=== PATIENT | female | born 1970 ===

== ENCOUNTER 2018-06-16 18:12 | Emergency (ER) | payer MEDICAID ==
[2018-06-16 18:31] VITALS: O2SAT 100
--- NOTE | 2018-06-16 19:55 | ED PDOC ---
HPI: Headache Time Seen by Provider: 06/16/18 19:08 Chief Complaint (Nursing): Headache Chief Complaint (Provider): Headache History Per: Patient History/Exam Limitations: no limitations Onset/Duration Of Symptoms: Days Current Symptoms Are (Timing): Still Present Additional Complaint(s): Cleo Zavala is a 48 year old female with a past medical history of hypothyr oidism who is presenting to the ED for multiple complaints. She complains of right elbow pain, worse when extending and flexing at elbow, onset 1 week ago. Patient denies any heavy lifting or significant trauma and states that she took Motrin once in the past week. She also reports a bi-temporal headache described as a throbbing, sharp, pressure like sensation, associated with dizziness and lightheadedness but not a room spinning sensation. Patient states that she is not prone to getting headaches and denies any neck stiffness or fevers. Headache is non-thunderclap or maximal in onset. PMD: Michael in [facility] Past Medical History Reviewed: Historical Data, Nursing Documentation, Vital Signs Vital Signs: Last Vital Signs Temp 98.7 F 06/16/18 18:28 Pulse 71 06/16/18 18:28 Resp 16 06/16/18 18:28 BP 117/86 06/16/18 18:28 Pulse Ox 100 06/16/18 18:28 - Medical History PMH: Hypothyroidism - Surgical History Surgical History: No Surg Hx - Family History Family History: States: Unknown Family Hx - Social History Current smoker - smoking cessation education provided: No Alcohol: None Drugs: Denies - Home Medications Home Medications: Ambulatory Orders Medication Instructions Recorded Cyclobenzaprine [Cyclobenzaprine 10 mg PO BID #15 tab 06/16/18 HCl] Naproxen [Naprosyn] 500 mg PO BID #30 tablet 06/16/18 - Allergies Allergies/Adverse Reactions: Allergies Allergy/AdvReac Type Severity Reaction Status Date / Time No Known Allergies Allergy Verified 06/16/18 19:22 Review of Systems ROS Statement: Except As Marked, All Systems Reviewed And Found Negative Constitutional: Negative for: Fever Musculoskeletal: Positive for: Arm Pain. Negative for: Neck Pain Neurological: Positive for: Headache, Dizziness Physical Exam - Reviewed Nursing Documentation Reviewed: Yes Vital Signs Reviewed: Yes - Physical Exam Appears: Positive for: Well (patient is walkign around the ED eating and drinking), Non-toxic, No Acute Distress Head Exam: Positive for: ATRAUMATIC, NORMAL INSPECTION, NORMOCEPHALIC Skin: Positive for: Normal Color, Warm, DRY Eye Exam: Positive for: EOMI, Normal appearance, PERRL ENT: Positive for: Normal ENT Inspection Neck: Positive for: Normal, Painless ROM Cardiovascular/Chest: Positive for: Regular Rate, Rhythm. Negative for: Murmur Respiratory: Positive for: Normal Breath Sounds. Negative for: Respiratory Dist ress Gastrointestinal/Abdominal: Positive for: Normal Exam, Soft. Negative for: Tenderness Back: Positive for: Normal Inspection Extremity: Positive for: Normal ROM. Negative for: Deformity, Swelling Neurologic/Psych: Positive for: Alert, city manager II-XII (intact), Oriented, Gait (normal). Negative for: Motor/Sensory Deficits - ECG O2 Sat by Pulse Oximetry: 100 (RA) Pulse Ox Interpretation: Normal Medical Decision Making Medical Decision Making: Time: 19:22 A/P: Well appearing 48 year old female with headache and right arm pain --Arm pain likely due to tendonitis and headache is likely tension v migraine not concerned for meningitis subarachnoid --Given age and first time headache like this one, will get head CT to rule out mass CT Head: --Normal. No acute findings. --Patient is feeling much better --Advised followup with her PMD in [place] --Patient is feeling much better upon evaluation, well appearing, ambulatory Scribe Attestation: Documented by Marilu Fiore, acting as a scribe for Tez Ernst MD. Provider Scribe Attestation: All medical record entries made by the Scribe were at my direction and personally dictated by me. I have reviewed the chart and agree that the record accurately reflects my personal performance of the history, physical exam, medical decision making, and the department course for this patient. I have also personally directed, reviewed, and agree with the discharge instructions and disposition. Disposition - Clinical Impression Clinical Impression: Headache, Tendinitis - Disposition Disposition: Routine/Home Disposition Time: 21:48 Condition: STABLE Additional Instructions: Please followup with your doctor in [place] on Tuesday for followup. Prescriptions: Cyclobenzaprine [Cyclobenzaprine HCl] 10 mg PO BID #15 tab Naproxen [Naprosyn] 500 mg PO BID #30 tablet Instructions: Tendonitis, Migraine Headache (DC) Forms: [employer] (Japanese)
[2018-06-16 21:49] VITALS: BP 128/89; PULSE 78; RESP 18; TEMP 98.8
--- NOTE | 2018-06-17 08:46 | CT ---
Date of service: 06/16/2018 PROCEDURE: CT HEAD WITHOUT CONTRAST. HISTORY: MURGUIA x 2 days, dizziness COMPARISON: None available. TECHNIQUE: Axial computed tomography images were obtained through the head/brain without intravenous contrast. Radiation dose: Total exam DLP = 858 mGy-cm. This CT exam was performed using one or more of the following dose reduction techniques: Automated exposure control, adjustment of the mA and/or kV according to patient size, and/or use of iterative reconstruction technique. FINDINGS: HEMORRHAGE: No intracranial hemorrhage. BRAIN: No mass effect or edema. No atrophy or chronic microvascular ischemic changes. VENTRICLES: Unremarkable. No hydrocephalus. CALVARIUM: Unremarkable. PARANASAL SINUSES: Unremarkable as visualized. No significant inflammatory changes. MASTOID AIR CELLS: Unremarkable as visualized. No inflammatory changes. OTHER FINDINGS: None. IMPRESSION: Unremarkable CT scan of the brain without contrast. No evidence of cortical effacement. This agrees with preliminary report provided by the on-call radiologist. If symptoms persist MRI is suggested for further evaluation.
== END 2018-06-16 21:48 | disposition home or self-care (01) ==
LOC: H.ER 18:12
DX: R51 Headache (principal); M65.9 Synovitis and tenosynovitis, unspecified; E03.9 Hypothyroidism, unspecified